=== PATIENT | male | born 1950 | race Caucasian/White ===

== ENCOUNTER → 2019-02-15 | Outpatient (CLI) | payer MEDICARE ==
--- NOTE | 2019-02-15 16:24 | CT ---
EXAMINATION TYPE: CT brain wo con DATE OF EXAM: 02/15/2019 HISTORY: Dizziness and near syncope. CT DLP: 1107.6 mGycm. Automated Exposure Control for Dose Reduction was Utilized. TECHNIQUE: CT scan of the head is performed without contrast. COMPARISON: None. FINDINGS: There is no acute intracranial hemorrhage or midline shift identified. There is diffuse v entricular and sulcal prominence consistent with diffuse age-related cerebral atrophy. There is low- attenuation in the periventricular white matter consistent with chronic small vessel ischemic change. Eccentric severe mucosal thickening in the left maxillary sinus. The globes are intact and the visua lized sinuses are otherwise clear. IMPRESSION: No acute intracranial hemorrhage or midline shift. There is [id number] diffuse ag e-related cerebral atrophy and mild chronic small vessel ischemic change noted.
--- NOTE | 2019-02-15 16:28 | XR ---
EXAMINATION TYPE: XR chest 2V DATE OF EXAM: 02/15/2019 COMPARISON: NONE HISTORY: Syncope and weakness. TECHNIQUE: Frontal and lateral views of the chest are obtained. FINDINGS: There is some chronic parenchymal change without suspicious focal air space opacity, pleural effusion, or pneumothorax seen. The cardiac silhouette size is with in normal limits. Narrowing at bilateral acromioclavicular joints is present. IMPRESSION: No acute cardiopulmonary process.
--- NOTE | 2019-02-15 16:56 | US ---
EXAMINATION TYPE: US carotid duplex BILAT DATE OF EXAM: 02/15/2019 COMPARISON: NONE CLINICAL HISTORY: Near Syncope R55. Dizziness. Blurred vision. EXAM MEASUREMENTS: RIGHT: Peak Systolic Velocity (PSV) cm/sec ----- Right CCA: 112.2 ----- Right ICA: 84.4 ----- Right ECA: 141.6 ICA/CCA ratio: 0.8 RIGHT: End Diastole cm/sec ----- Right CCA: 29.3 ----- Right ICA: 32.6 ----- Right ECA: 13.9 LEFT: Peak Systolic Velocity (PSV) cm/sec ----- Left CCA: 75.6 ----- Left ICA: 105.7 ----- Left ECA: 123.8 ICA/CCA ratio: 1.4 LEFT: End Diastole cm/sec ----- Left CCA: 16.1 ----- Left ICA: 35.8 ----- Left ECA: 18.8 VERTEBRALS (direction of flow): Right Vertebral: Antegrade Left Vertebral: Antegrade Rhythm: Normal Bilateral wall thickening. Elevated right ECA and slightly right prox CCA. Plaque seen in bilateral bulbs. No significant stenosis. IMPRESSION: There is antegrade flow in the vertebral arteries. There is plaque formation and the nani ges and measurements suggest 50% stenosis in the proximal right common carotid artery. There is also close to 50% stenosis left common carotid artery. Criteria for Assigning % of Stenosis / Diameter reduction (Estimation based on the indirect measurements of the internal carotid artery velocities (ICA PSV). 1. Normal (no stenosis)=ICA PSV < 125 cm/s: ratio < 2.0: ICA EDV<40 cm/s. 2. Less than 50% stenosis=ICA PSV < 125 cm/s: ratio < 2.0: ICA EDV<40 cm/s. 3. 50 to 69% stenosis=ICA PSV of 125 to 230 cm/s: ration 2.0 ? 4.0: ICA EDV 40-100 cm/s. 4. Greater than 70% stenosis to near occlusion= ICA PSV > 230 cm/s: ratio > 4.0: ICA EDV > 100 cm/s. 5. Near occlusion= ICA PSV velocities may be low or undetectable: variable ratio and ICA EDV. 6. Total occlusion=unable to detect flow.
== END | disposition home or self-care (01) ==
LOC: RADUSMAIN 15:55
PROVIDERS: ATTEND Physician Assistant
DX: G31.1 Senile degeneration of brain, not elsewhere classified (principal); I67.82 Cerebral ischemia; I65.23 Occlusion and stenosis of bilateral carotid arteries; R55 Syncope and collapse
CPT/HCPCS: 70450; 71046; 93880

== ENCOUNTER → 2019-05-30 | Outpatient (CLI) | payer MEDICARE | END | disposition home or self-care (01) | LOC: LABWHC1 09:34 | PROVIDERS: ATTEND Urology | DX: R97.20 Elevated prostate specific antigen [PSA] (principal) | CPT/HCPCS: 36415; 84153 ==

== ENCOUNTER 2021-01-20 20:09 | Observation (INO) | payer MEDICARE ==
--- NOTE | 2021-01-20 21:46 | ED ---
General Adult HPI - General Chief complaint: Recheck/Abnormal Lab/Rx Stated complaint: elevated BP Time Seen by Provider: 01/20/21 20:59 Source: patient, family Mode of arrival: ambulatory - History of Present Illness Initial comments: 70 year-old male patient presents to the emergency department for evaluation of altered mental status. Family states that he has been more confused lately and making up scenarios that are not happening. States symptoms have been worsening over the last couple of months. He was getting up at night and talking to himself and laughing. States he has accused her of having an affair and other situations that are not true. Patient states that he feels fine and is not having any symptoms. Denies any headache, blurred vision, or double vision. Den ies any chest pain, shortness of breath, dizziness, or weakness. Denies any numbness or tingling to the extremities. Denies any nausea, vomiting, or diarrhea. 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 Patient denies any recent rash, fever, chills, cough, abdominal pain, constipation, back pain, numbness, tingling, dizziness, weakness, hematuria, dysuria, urinary urgency, urinary frequency, or any other complaints. - Related Data Home Medications Medication Instructions Recorded Confirmed Aspirin EC [Ecotrin Low Dose] 81 mg PO DAILY 01/20/21 01/20/21 Irbesartan [Avapro] 75 mg PO DAILY 01/20/21 01/20/21 Allergies Allergy/AdvReac Type Severity Reaction Status Date / Time No Known Allergies Allergy Verified 01/20/21 23:20 Review of Systems ROS Statement: Those systems with pertinent positive or pertinent negative responses have been documented in the HPI. ROS Other: All systems not noted in ROS Statement are negative. Past Medical History Past Medical History: Hyperlipidemia, Hypertension History of Any Multi-Drug Resistant Organisms: MRSA Date of last positivie culture/infection: 09/20/2014 MDRO Source:: Scrotum Past Surgical History: No Surgical Hx Reported Past Anesthesia/Blood Transfusion Reactions: Motion Sickness Past Psychological History: No Psychological Hx Reported Smoking Status: Current every day smoker Past Alcohol Use History: None Reported Past Drug Use History: None Reported - Past Family History Son(s) Family Medical History: Cancer General Exam General appearance: alert, in no apparent distress, other (Physical well- developed, well-nourished elderly male patient in no acute distress. Vital signs upon presentation are temperature 98.1F, pulse 86, respirations 20, blood pressure 173/81, pulse ox 97% on room air.) Eye exam: Present: normal appearance, PERRL, EOMI. Absent: scleral icterus, conjunctival injection, periorbital swelling ENT exam: Present: normal exam, normal oropharynx, mucous membranes moist Respiratory exam: Present: normal lung sounds bilaterally. Absent: respiratory distress, wheezes, rales, rhonchi, stridor Cardiovascular Exam: Present: regular rate, normal rhythm, normal heart sounds. Absent: systolic murmur, diastolic murmur, rubs, gallop, clicks GI/Abdominal exam: Present: soft, normal bowel sounds. Absent: distended, tenderness, guarding, rebound, rigid Neurological exam: Present: alert, oriented X3, CN II-XII intact Psychiatric exam: Present: normal affect, normal mood Skin exam: Present: warm, dry, intact, normal color. Absent: rash Course Vital Signs 01/20/21 01/20/21 01/20/21 20:54 21:22 21:30 Temperature 98.1 F Pulse Rate 86 80 Pulse Rate [ 80 Physical Laboratory Assistant ] Respiratory 20 18 Rate Blood Pressure 173/81 154/84 O2 Sat by Pulse 97 96 Oximetry 01/20/21 01/21/21 23:10 00:17 Temperature Pulse Rate 72 78 Pulse Rate [ Physical Laboratory Assistant ] Respiratory 18 18 Rate Blood Pressure 130/77 O2 Sat by Pulse 96 97 Oximetry EKG Findings - EKG Comments: EKG Findings:: EKG obtained at 2107 shows normal sinus rhythm with an incomplete right bundle branch block. Ventricular rate is 78, GA interval 130, QRS duration 104, QT 380, QTc 433. Medical Decision Making - Medical Decision Making 70-year-old male patient presenting with for evaluation of altered mental status, confusion, paranoia going on and getting increasingly worse for the last couple of months. Physical examination is unremarkable. He is neurologically intact with no focal deficits. He is alert and oriented at this time. Labs reviewed and were unremarkable. CT brain was negative. Urinalysis shows no signs of infection. is very concerned and would like to have him evaluated by psychiatry. Since this is quite new for him we will also admit to the hospital to see the neurologist and have psych see him while he is here. Patient is reluctant to stay, we will give him Ativan. I did discuss with family that is possible that he may need restraining if he does not cooperate, they were agreeable. is filling out a petition. Case discussed with Calderon Rojas for Dr. Denny who is agreeable with this plan. Case discussed with my attending Dr. Dominguez. - Lab Data Result diagrams: 01/20/21 21:55 01/20/21 21:55 Lab Results 01/20/21 01/20/21 01/20/21 Range/Units 21:55 21:55 21:55 WBC 10.8 H (3.8-10.6) k/uL RBC 5.37 (4.30-5.90) m/uL Hgb 16.0 (13.0-17.5) gm/dL Hct 47.0 (39.0-53.0) % MCV 87.5 (80.0-100.0) fL MCH 29.8 (25.0-35.0) pg MCHC 34.1 (31.0-37.0) g/dL RDW 15.2 (11.5-15.5) % Plt Count 210 (150-450) k/uL MPV 7.7 Neutrophils % 71 % Lymphocytes % 20 % Monocytes % 6 % Eosinophils % 2 % Basophils % 1 % Neutrophils # 7.6 (1.3-7.7) k/uL Lymphocytes # 2.1 (1.0-4.8) k/uL Monocytes # 0.6 (0-1.0) k/uL Eosinophils # 0.2 (0-0.7) k/uL Basophils # 0.1 (0-0.2) k/uL PT 10.5 (9.0-12.0) sec INR 1.0 (<1.2) APTT 23.1 (22.0-30.0) sec Sodium (137-145) mmol/L Potassium (3.5-5.1) mmol/L Chloride (98-107) mmol/L Carbon Dioxide (22-30) mmol/L Anion Gap mmol/L BUN (9-20) mg/dL Creatinine (0.66-1.25) mg/dL Est GFR (CKD-EPI)AfAm (>60 ml/min/1.73 sqM) Est GFR (CKD-EPI)NonAf (>60 ml/min/1.73 sqM) Glucose (74-99) mg/dL Calcium (8.4-10.2) mg/dL Total Bilirubin (0.2-1.3) mg/dL AST (17-59) U/L ALT (4-49) U/L Alkaline Phosphatase (38-126) U/L Troponin I (0.000-0.034) ng/mL Total Protein (6.3-8.2) g/dL Albumin (3.5-5.0) g/dL Urine Color Yellow Urine Appearance Clear (Clear) Urine pH 5.0 (5.0-8.0) Ur Specific [place] 1.012 (1.001-1.035) Urine Protein Negative (Negative) Urine Glucose (UA) Negative (Negative) Urine Ketones Negative (Negative) Urine Blood Negative (Negative) Urine Nitrite Negative (Negative) Urine Bilirubin Negative (Negative) Urine Urobilinogen <2.0 (<2.0) mg/dL Ur Leukocyte Esterase Trace H (Negative) Urine RBC 3 (0-5) /hpf Urine WBC 2 (0-5) /hpf Ur Squamous Epith Cells 1 (0-4) /hpf Urine Mucus Occasional H (None) /hpf Urine Opiates Screen Not Detected (NotDetected) Ur Oxycodone Screen Not Detected (NotDetected) Urine Methadone Screen Not Detected (NotDetected) Ur Propoxyphene Screen Not Detected (NotDetected) Ur Barbiturates Screen Not Detected (NotDetected) U Tricyclic Antidepress Not Detected (NotDetected) Ur Phencyclidine Scrn Not Detected (NotDetected) Ur Amphetamines Screen Not Detected (NotDetected) U Methamphetamines Scrn Not Detected (NotDetected) U Benzodiazepines Scrn Not Detected (NotDetected) Urine Cocaine Screen Not Detected (NotDetected) U Marijuana (THC) Screen Not Detected (NotDetected) Serum Alcohol mg/dL 01/20/21 01/20/21 Range/Units 21:55 21:55 WBC (3.8-10.6) k/uL RBC (4.30-5.90) m/uL Hgb (13.0-17.5) gm/dL Hct (39.0-53.0) % MCV (80.0-100.0) fL MCH (25.0-35.0) pg MCHC (31.0-37.0) g/dL RDW (11.5-15.5) % Plt Count (150-450) k/uL MPV Neutrophils % % Lymphocytes % % Monocytes % % Eosinophils % % Basophils % % Neutrophils # (1.3-7.7) k/uL Lymphocytes # (1.0-4.8) k/uL Monocytes # (0-1.0) k/uL Eosinophils # (0-0.7) k/uL Basophils # (0-0.2) k/uL PT (9.0-12.0) sec INR (<1.2) APTT (22.0-30.0) sec Sodium 135 L (137-145) mmol/L Potassium 3.8 (3.5-5.1) mmol/L Chloride 104 (98-107) mmol/L Carbon Dioxide 22 (22-30) mmol/L Anion Gap 9 mmol/L BUN 13 (9-20) mg/dL Creatinine 0.74 (0.66-1.25) mg/dL Est GFR (CKD-EPI)AfAm >90 (>60 ml/min/1.73 sqM) Est GFR (CKD-EPI)NonAf >90 (>60 ml/min/1.73 sqM) Glucose 100 H (74-99) mg/dL Calcium 9.6 (8.4-10.2) mg/dL Total Bilirubin 0.8 (0.2-1.3) mg/dL AST 31 (17-59) U/L ALT 18 (4-49) U/L Alkaline Phosphatase 90 (38-126) U/L Troponin I <0.012 (0.000-0.034) ng/mL Total Protein 6.9 (6.3-8.2) g/dL Albumin 4.4 (3.5-5.0) g/dL Urine Color Urine Appearance (Clear) Urine pH (5.0-8.0) Ur Specific [place] (1.001-1.035) Urine Protein (Negative) Urine Glucose (UA) (Negative) Urine Ketones (Negative) Urine Blood (Negative) Urine Nitrite (Negative) Urine Bilirubin (Negative) Urine Urobilinogen (<2.0) mg/dL Ur Leukocyte Esterase (Negative) Urine RBC (0-5) /hpf Urine WBC (0-5) /hpf Ur Squamous Epith Cells (0-4) /hpf Urine Mucus (None) /hpf Urine Opiates Screen (NotDetected) Ur Oxycodone Screen (NotDetected) Urine Methadone Screen (NotDetected) Ur Propoxyphene Screen (NotDetected) Ur Barbiturates Screen (NotDetected) U Tricyclic Antidepress (NotDetected) Ur Phencyclidine Scrn (NotDetected) Ur Amphetamines Screen (NotDetected) U Methamphetamines Scrn (NotDetected) U Benzodiazepines Scrn (NotDetected) Urine Cocaine Screen (NotDetected) U Marijuana (THC) Screen (NotDetected) Serum Alcohol <10 mg/dL - Radiology Data Radiology results: report reviewed, image reviewed Two-view x-ray of the chest is obtained. Report was reviewed in its entirety. Impression by Dr. Scott shows normal chest. No change CT brain without contrast was obtained. Report was reviewed in its entirety. Impression by Dr. Scott shows cerebral atrophy. No acute intracranial abnormality. No change compared to old exam. Disposition Clinical Impression: Altered mental status, Paranoia Disposition: ADMITTED IP TO THIS [facility] Condition: Serious Decision to Admit Reason: Admit from EC Decision Date: 01/21/21 Decision Time: 01:09
[2021-01-20 22:10] LABS: Appearance,Urine Clear (Clear); Bilirubin,Urine Negative (Negative); Blood,Urine Negative (Negative); Color,Urine Yellow; Glucose,Urine (UA) Negative (Negative); Ketones,Urine Negative (Negative); Leukocyte Esterase,Urine Trace (Negative); Mucus,Urine Occasional /hpf; Nitrite,Urine Negative (Negative); Protein,Urine Negative (Negative); RBC,Urine 3 /hpf (0-5); Specific Gravity,Urine 1.012 (1.001-1.035); Squamous Epithelial Cell,Urine 1 /hpf (0-4); Urobilinogen,Urine <2.0 mg/dL (<2.0); WBC,Urine 2 /hpf (0-5)
[2021-01-20 22:13] LABS: ALT 18 U/L (4-49); AST 31 U/L (17-59); African American GFR (CKD) >90 (>60 ml/min/1.73 sqM); Albumin 4.4 g/dL (3.5-5.0); Alcohol <10 mg/dL; Alkaline Phosphatase 90 U/L (38-126); Anion Gap 9 mmol/L; Blood Urea Nitrogen 13 mg/dL (9-20); Calcium 9.6 mg/dL (8.4-10.2); Carbon Dioxide 22 mmol/L (22-30); Chloride 104 mmol/L (98-107); Glucose 100 mg/dL (74-99); Non-African American GFR(CKD) >90 (>60 ml/min/1.73 sqM); Potassium 3.8 mmol/L (3.5-5.1); Sodium 135 mmol/L (137-145); Total Bilirubin 0.8 mg/dL (0.2-1.3); Total Protein 6.9 g/dL (6.3-8.2)
[2021-01-20 22:15] LABS: Partial Thromboplastin Time 23.1 sec (22.0-30.0); Prothrombin Time 10.5 sec (9.0-12.0)
[2021-01-20 22:20] LABS: Amphetamine Screen,Urine Not Detected (NotDetected); Barbiturate Screen,Urine Not Detected (NotDetected); Benzodiazepines Screen,Urine Not Detected (NotDetected); Cocaine Screen,Urine Not Detected (NotDetected); Methadone Screen, Urine Not Detected (NotDetected); Opiate Screen,Urine Not Detected (NotDetected); Oxycodone Screen, Urine Not Detected (NotDetected); Phencyclidine Screen,Urine Not Detected (NotDetected); Tricyclic Antidepressant,Urine Not Detected (NotDetected); Urn Cannabinoid Scrn Not Detected (NotDetected)
[2021-01-20 22:21] LABS: Basophils # (A) 0.1 k/uL (0-0.2); Basophils % (A) 1 %; Eosinophils # (A) 0.2 k/uL (0-0.7); Eosinophils % (A) 2 %; Lymphocytes # (A) 2.1 k/uL (1.0-4.8); Lymphocytes % (A) 20 %; MCH 29.8 pg (25.0-35.0); MCHC 34.1 g/dL (31.0-37.0); MCV 87.5 fL (80.0-100.0); Mean Platelet Volume 7.7; Monocytes # (A) 0.6 k/uL (0-1.0); Monocytes % (A) 6 %; Neutrophils # (A) 7.6 k/uL (1.3-7.7); Neutrophils % (A) 71 %; Platelet Count 210 k/uL (150-450); RBC 5.37 m/uL (4.30-5.90); RDW 15.2 % (11.5-15.5); WBC 10.8 k/uL (3.8-10.6)
--- NOTE | 2021-01-20 22:58 | XR ---
EXAMINATION TYPE: XR chest 2V DATE OF EXAM: 01/20/2021 COMPARISON: February 15, 2019 HISTORY: Altered mental status. TECHNIQUE: FINDINGS: Heart and mediastinum are normal. Lungs are clear. Diaphragm is normal. Bony thorax is inta ct. IMPRESSION: Normal chest. No change.
--- NOTE | 2021-01-20 23:00 | CT ---
EXAMINATION TYPE: CT brain wo con DATE OF EXAM: 01/20/2021 COMPARISON: February 15, 2019 HISTORY: AMS CT DLP: 1229.4 mGycm Automated exposure control for dose reduction was used. Exam performed without contrast. There is cerebral atrophy. There is no mass effect nor midline shift. There is no sign of intracrania l hemorrhage. Calvarium is intact. There is normal aeration of the mastoid sinuses. IMPRESSION: Cerebral atrophy. No acute intracranial abnormality. No change compared to old exam.
[2021-01-20] MEDS ORDERED: LORazepam 2 MG/ML INJ IV STA (23:34)
[2021-01-20] MEDS ORDERED: NALOXONE 0.4 MG/ML 1 ML VIAL IV PRN (23:46)
[2021-01-20] MEDS ORDERED: LORazepam 2 MG/ML INJ IV PRN (23:46)
[2021-01-21 07:34] LABS: Basophils # (A) 0.1 k/uL (0-0.2); Basophils % (A) 1 %; Eosinophils # (A) 0.3 k/uL (0-0.7); Eosinophils % (A) 4 %; HCT 46.8 % (39.0-53.0); HGB 15.4 gm/dL (13.0-17.5); Lymphocytes # (A) 1.6 k/uL (1.0-4.8); Lymphocytes % (A) 20 %; MCH 29.4 pg (25.0-35.0); MCHC 32.9 g/dL (31.0-37.0); MCV 89.3 fL (80.0-100.0); Mean Platelet Volume 7.5; Monocytes # (A) 0.4 k/uL (0-1.0); Monocytes % (A) 6 %; Neutrophils # (A) 5.2 k/uL (1.3-7.7); Neutrophils % (A) 68 %; Platelet Count 206 k/uL (150-450); RBC 5.24 m/uL (4.30-5.90); RDW 15.2 % (11.5-15.5); WBC 7.7 k/uL (3.8-10.6)
[2021-01-21 07:51] LABS: ALT 18 U/L (4-49); AST 29 U/L (17-59); African American GFR (CKD) >90 (>60 ml/min/1.73 sqM); Albumin 4.3 g/dL (3.5-5.0); Albumin/Globulin Ratio 1.7; Alkaline Phosphatase 93 U/L (38-126); Anion Gap 7 mmol/L; Blood Urea Nitrogen 11 mg/dL (9-20); Calcium 9.7 mg/dL (8.4-10.2); Carbon Dioxide 26 mmol/L (22-30); Chloride 104 mmol/L (98-107); Globulin 2.6 g/dL; Glucose 99 mg/dL (74-99); Magnesium 2.2 mg/dL (1.6-2.3); Non-African American GFR(CKD) >90 (>60 ml/min/1.73 sqM); Potassium 4.4 mmol/L (3.5-5.1); Sodium 137 mmol/L (137-145); Total Bilirubin 1.3 mg/dL (0.2-1.3); Total Protein 6.9 g/dL (6.3-8.2)
[2021-01-21] MEDS ORDERED: LOSARTAN 25 MG TAB PO SCH (09:00)
[2021-01-21] MEDS ORDERED: ASPIRIN 81 MG PO SCH (09:00)
[2021-01-21] MEDS: IPRATROPIUM-ALBUTEROL 3 ML NEB INHALATION SCH ×3 (09:34→20:37)
[2021-01-21] MEDS: SODIUM CHLORIDE 0.9% 1,000 ML IV SCH ×2 (09:56→23:08)
--- NOTE | 2021-01-21 13:12 | P.CNNES ---
History of Present Illness Consult date: 01/21/21 Requesting physician: Montserrat Looney Reason for Consult: Altered mental status, paranoia History of Present Illness: Patient is a 70-year-old male came to the hospital yesterday at 8:52 PM for evaluation of altered mental status, confusion, paranoia going on and getting increasingly worse for the last couple months. Patient himself denies any symptoms. He states that he fell about 1-1/2 years ago, when he tripped on a cement, stumbled and hit right side of the face on the cement. He did lose consciousness for about 30-60 seconds. He was able to get up by himself, drove home. He saw Dr. Denny office the next day. He states that he underwent MRI, which showed something consisting of 3 letters, which I presume is "TIA". He says that he has some memory problems but nothing major. He has no concerns at all. Patient was sent to the hospital for high blood pressure. Once the blood pressure was controlled, when patient was considered about discharge, patient's mentioned that he has been paranoid or the last 2 months. She has petitioned the patient. According to the edition, patient has been talking to himself, people listening, paranoia, and using his of unfilled fullness with false accusations. He is accusing children of trying to take his forearm, family trying to entrap him. Therefore for this altered mental status, neurology and psychiatry consultation has been initiated. Patient denies headache, denies any numbness or tingling. Denies any problem with memory functions. He does firmly believe that his is having an affair with someone else, arranged/introduced by a person Trisha. Patient states that he lives his , who they're for 26 years. He has 5 children. He smokes one pack every 3 days for last 5 years. He used to smoke cigars, once a week, never heavy smoker. He does not drink, does not do any drugs or uses any marijuana. Vital signs on arrival blood pressure 173/81, pulse rate 86, temperature 98.1. Blood test shows normal WBC 7.7, normal hemoglobin 15.4. PT/PTT normal, sodium was mildly low 135 but now normal 137. Renal functions, hepatic panel, troponin, TSH are all normal or negative. UA is negative. Urine drug screen negative, blood alcohol level negative. CT head showed cerebral atrophy. No acute intracranial abnormality. No change compared to old exam. Chest x-ray is normal. EKG shows normal sinus rhythm, incomplete right bundle branch block. Carotid Doppler on 02/15/2019 showed antegrade flow in the vertebral arteries. There is plaque formation and the images in measurement suggest 50% stenosis in the proximal right common carotid artery. I spoke to the nurse taking care of him in the ER, as well as the sitter who is watching the patient, states that he is completely clear mentally. Patient has been very calm, comfortable, does not get agitated, or gets irritable. He is staying calmly in the ER. No evidence of altered mentation. Review of Systems Denies headache, problem with the vision, hoarseness, sore throat, dysphagia. Denies any problem with walking, denies any balance issues, any abdominal pain. No nausea vomiting diarrhea. No chest pain or shortness of breath. No wheezing or cough. No leg pain. No fever or chills. No weight loss. Past Medical History Past Medical History: Hyperlipidemia, Hypertension History of Any Multi-Drug Resistant Organisms: MRSA Date of last positivie culture/infection: 09/20/2014 MDRO Source:: Scrotum Past Surgical History: No Surgical Hx Reported Past Anesthesia/Blood Transfusion Reactions: Motion Sickness Past Psychological History: No Psychological Hx Reported Smoking Status: Current every day smoker Past Alcohol Use History: None Reported Past Drug Use History: None Reported - Past Family History Son(s) Family Medical History: Cancer Medications and Allergies Home Medications Medication Instructions Recorded Confirmed Type Aspirin EC [Ecotrin Low Dose] 81 mg PO DAILY 01/20/21 01/20/21 History Irbesartan [Avapro] 75 mg PO DAILY 01/20/21 01/20/21 History Allergies Allergy/AdvReac Type Severity Reaction Status Date / Time No Known Allergies Allergy Verified 01/20/21 23:20 Physical Examination - Vital Signs Vital Signs: Vital Signs Temp Pulse Pulse Resp BP Pulse Ox 01/21/21 10:00 18 01/21/21 09:00 18 01/21/21 08:11 18 01/21/21 05:57 97.9 F 76 18 120/58 96 01/21/21 03:10 18 01/21/21 00:17 78 18 97 01/20/21 23:10 72 18 130/77 96 01/20/21 21:30 80 01/20/21 21:22 80 18 154/84 96 01/20/21 20:54 98.1 F 86 20 173/81 97 Intake and Output 01/20/21 01/21/21 01/21/21 22:59 06:59 14:59 Other: Weight 99.79 kg Patient is an elderly male, very pleasant, in no acute distress. Patient is alert awake oriented to time place and person. Patient knows that it is January 23 and the year is 2020. He knows it is Wednesday, early fall season. He knows that he is in [facility], [facility] and on ground level. Clock drawing test was perfect. Patient has no visuospatial apraxia. Negative palmomental reflex. Speech and language functions are normal. No aphasia or dysarthria. Attention, concentration and fund of knowledge is adequate. On cranial examination, pupils are round and reacting to light, visual ortiz are full on confrontation, extraocular muscles are intact with no nystagmus. Face is symmetric, tongue protrudes to the midline. Palatal elevation and sensation normal, hearing and shoulder shrug normal, facial sensation normal. Shoulder shrug normal. On muscle strength testing, there is no pronator drift and the strength is normal in arms and legs distally and proximally. Deep tendon reflexes are 1+ in the upper limbs, 3 at the knees but ankles and plantars are withdrawal bilaterally. Sensory to touch is equal with no neglect. Cerebellar function showed no ataxia for [id number] testing. He is slightly tremulous for [id number] testing as well as for outstretched hands. Tone and bulk of muscles normal. Gait normal, although he walks with a slight stoop, but no parkinsonian gait. On general examination, there is mild right carotid bruit. No murmur, S1-S2 audible. Abdomen is soft nontender. Chest is clear. Peripheral pulses are present. No edema. Results - Laboratory Findings CBC and BMP: 01/21/21 07:11 01/21/21 07:07 Abnormal Lab Findings: Abnormal Labs 01/20/21 01/20/21 01/20/21 21:55 21:55 21:55 WBC 10.8 H Sodium 135 L Glucose 100 H Ur Leukocyte Esterase Trace H Urine Mucus Occasional H Assessment and Plan Assessment: * 70-year-old male referred for altered mental status, mainly related to paranoia, falls accusations as reported by his , going on for last 2 months. Patient's mental status is completely normal. No evidence of dementia based upon cognitive function testing as above. No evidence of a ltered mental status at least as of now. New onset paranoia, if confirmed, possibly psychiatric related. * Hypertension Plan: * We will check MRI of the brain with and without contrast to rule out any ?autoimmune or para-neoplastic process, or other structural abnormality. * B12, folate, MMA, B6, B1 level. RPR. * Await psychiatry consultation. * Discussed with nursing staff and Dr Santiago in detail. * We will follow patient clinically.
--- NOTE | 2021-01-21 13:30 | P.CN ---
Psychiatric Consult - . Consult date: 01/21/21 Consult:: 01/21/21 13:15 IDENTIFYING DATA: This patient is a 70-year-old male with no past psychiatric history currently lives with his and has 3 kids of his own. 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 REASON FOR REFERRAL: Psychiatry was consulted for "paranoiac confusion and talking to himself" HISTORY OF PRESENT ILLNESS: The patient presented to the hospital yesterday with altered mental status. He was brought in by family. Patient apparently was displaying confusion and according to family making up scenarios that didn't occur. Family states that this is been going on for the past 2 months according to ER report. Patient had a brain CT which did not show any acute changes however didn't show cerebral atrophy. Urinalysis was negative. Urine drug screen was negative. Wbc's were mildly elevated at 10.8 and sodium was at 135. Nurse taking care of patient states that he has been accused by his and petitioned and has been accusing his of an affair. Nurse claims that patient's behavior has been appropriate calm and cooperative and did not have any behavioral disturbances. Nurse also claims that patient has been denying everything on the petition. Patient was seen at the bedside and was agreeable to speak to pattern chart writer. He was fairly calm and cooperative with the examination. He spoke about not knowing why he is in the hospital however has been going along with the process. He states that the police showed up because his called them. He claims that his has been dealing with "bipolar and other issues" and states that she has been away from the house on and off which has been fairly unusual for her. She was fairly vague about why he believes that she is having an affair however did claim that she has been having a "change in her personality and may have a boyfriend". He spoke about a lady and a friend of his from [place] [employer] name Trisha who may know more about his and what she is doing. He claims that he has been trying to talk to her about it but she is not willing to tell him anything. He claims that he has a good relationship with his 3 kids however states that Giselle's children are trying to take his land away from him. He claims that he may want a divorce in the next few months because he does not trust his and claims that they have grown apart over the past few years. He states that they sleep in different bedrooms. He claims that his sleep has been fair his mood is "okay" and is denying any depression or anxiety. He does state that he has hunting rifles at home which are locked away. He is not endorsing any other delusions and was fairly rational and logical during conversation. At this time patient denies any suicidal or homical ideations, intent or plan. Patient denies any auditory, visual hallucinations. Patients admits to using cigarettes only and no other recreational drugs. He was alert and oriented 3. Catcher Filter Tip called Archana, the petitioner at [phone], no answer left VM PAST PSYCHIATRIC HISTORY: Patient has no significant past psychiatric history. Patient denies being on any psychiatric medications. Patient denies any previous psychiatric hospitalizations. Patient denies any psychiatric outpatient follow- up. Patient denies any history of suicide attempts in the past. Past Medical History: Hyperlipidemia, Hypertension History of Any Multi-Drug Resistant Organisms: MRSA ALLERGIES: as per EMR. CHEMICAL DEPENDENCY HISTORY: as per HPI. FAMILY PSYCHIATRIC/SUBSTANCE USE HISTORY: denies SOCIAL HISTORY: Patient was born and raised in [facility] and also in [employer] [place] [facility]. He states that he dropped out of school in the 10th grade. He denies any history. He denies any legal history. 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 He is currently , lives with his in the house. MENTAL STATUS EXAM: General Appearance: Patient appears to be elderly, wearing a hat, stated age is alert, pleasant, and cooperative. Patient appears to have fair hygiene and grooming wearing hospital gown with fair eye contact. Behavior: Patient is calmly lying in bed without any agitated behavior. c ooperative Speech: Patient's speech is fluent and nonpressured. Mood/Affect: Patient reports their mood is "ok", affect is congruent Suicidality/Homicidality: Patient denies having any suicidal or homicidal ideation intent or plan. Perceptions: Patient denies any visual hallucinations and denies any auditory hallucinations Though content/process: There is no evidence of any delusional thought content and thought process is linear and goal-directed. logical. Memory and concentration: AOX3, grossly intact for the purposes of this session. Can spell "WORLD" backwards Judgment and insight: fair IMPRESSIONS: Adjustment disorder unspecified Marital conflict Nicotine dependence PLAN: -At this time patient DOES NOT meet criteria for inpatient psychiatric admission. -Delirium precautions recommended with patient including - avoiding use of narcotics and KENNEL HAND sedatives, limit anticholinergic medications when possible, frequent re-orientation, minimize use of restraints, open window shades during the day and close them at night -Would recommend the following medication changes/additions: no medications needed at this time. Please no more Ativan or other BZD as this could make patient more confused or pose a fall risk. -Neurology onboard and discussed case and findings with Dr. Bhatt. will check MRI of the brain with and without contrast.B12, folate, MMA, B6, B1 level. RPR. -Can discontinue 1:1 sitter at this time as patient is not currently an imminent threat to themselves -Communicated plan to patient's nurse -Will continue to await call back from for further collateral information. -Psychiatry will sign off at this time -Please contact with any questions.
[2021-01-21] MEDS ORDERED: ALPRAZolam 0.5 MG TAB PO STA (14:54)
--- NOTE | 2021-01-21 18:11 | P.HPIM ---
History of Present Illness H&P Date: 01/21/21 Chief Complaint: Delirium multifactorial 70-year-old male with significant medical history of hypertension, upper lipidemia, history of MRSA, nicotine dependence, and prostate disorder; was admitted to the hospital for acute mental status change per family, patient was petitioned by and family for thoughts of significant other parachute packer affair, and children attempting to steal intake lay and from him. Upon evaluation of patient this a.m. patient resting comfortably in bed. Patient alert and oriented 4. Patient sedation denies any involvement of family attempting to take estate. Patient is adamant about marital discord will not going great detail regarding male that is discord. Vital signs of diagnostic testing reviewed unremarkable no acute abnormalities noted. Patient agreeable to see psychiatry, and neurology for further evaluation. 01/21/2021 Patient seen and examined at bedside resting comfortably with no acute signs of distress. Patient denies fever, chills, shortness of breath, chest pain, palpitations, abdominal pain or nausea at this time. Patient denies any complaints at this time. Patient updated on treatment plan and care plan from a medical standpoint and a psychiatric standpoint. Patient adamantly denies suicidal or homicidal ideation. Patient is able to take care of himself per patient. Patient cooperative during interview and maintains eye contact throughout interview. Patient no acute signs of distress. Review of Systems Constitutional: Reports as per HPI Ears, nose, mouth and throat: Reports as per HPI Cardiovascular: Reports as per HPI Respiratory: Reports as per HPI Gastrointestinal: Reports as per HPI Musculoskeletal: Reports as per HPI Integumentary: Reports as per HPI Neurological: Reports as per HPI Psychiatric: Reports as per HPI Endocrine: Reports as per HPI Hematologic/Lymphatic: Reports as per HPI Allergic/Immunologic: Reports as per HPI Past Medical History Past Medical History: Hyperlipidemia, Hypertension History of Any Multi-Drug Resistant Organisms: MRSA Date of last positivie culture/infection: 09/20/2014 MDRO Source:: Scrotum Past Surgical History: No Surgical Hx Reported Past Anesthesia/Blood Transfusion Reactions: Motion Sickness Past Psychological History: No Psychological Hx Reported Smoking Status: Current every day smoker Past Alcohol Use History: None Reported Past Drug Use History: None Reported - Past Family History Son(s) Family Medical History: Cancer Medications and Allergies Home Medications and Allergies Comment(s): Medications and ALLERGIES reviewed Home Medications Medication Instructions Recorded Confirmed Type Aspirin EC [Ecotrin Low Dose] 81 mg PO DAILY 01/20/21 01/20/21 History Irbesartan [Avapro] 75 mg PO DAILY 01/20/21 01/20/21 History Allergies Allergy/AdvReac Type Severity Reaction Status Date / Time No Known Allergies Allergy Verified 01/20/21 23:20 Physical Exam Vitals: Vital Signs Temp Pulse Pulse Resp BP Pulse Ox 01/21/21 14:00 18 97 01/21/21 13:00 97.8 F 63 18 132/73 97 01/21/21 12:00 18 01/21/21 11:00 18 01/21/21 10:00 18 01/21/21 09:00 18 01/21/21 08:11 18 01/21/21 05:57 97.9 F 76 18 120/58 96 01/21/21 03:10 18 01/21/21 00:17 78 18 97 01/20/21 23:10 72 18 130/77 96 01/20/21 21:30 80 01/20/21 21:22 80 18 154/84 96 01/20/21 20:54 98.1 F 86 20 173/81 97 - Constitutional General appearance: cooperative - EENT Eyes: EOMI, PERRLA, normal appearance ENT: normal oropharynx - Neck Carotids: bilateral: upstroke normal Thyroid: bilateral: normal size - Respiratory Respiratory: bilateral: CTA (Anterior and posterior lung ortiz) - Cardiovascular Normal sinus rhythm mechanism Heart rate: 74 Rhythm: regular Heart sounds: normal: S1, S2 radial pulse Peripheral Pulses: bilateral: Normal dorsalis pedis Peripheral Pulses: bilateral: Normal - Gastrointestinal General gastrointestinal: normal bowel sounds - Integumentary Integumentary: normal - Neurologic Neurologic: CNII-XII intact - Musculoskeletal Musculoskeletal: gait normal - Psychiatric Psychiatric: A&O x's 3 Results CBC & Chem 7: 01/21/21 07:11 01/21/21 07:07 Labs: Abnormal Lab Results - Last 24 Hours (Table) 01/20/21 01/20/21 01/20/21 Range/Units 21:55 21:55 21:55 WBC 10.8 H (3.8-10.6) k/uL Sodium 135 L (137-145) mmol/L Glucose 100 H (74-99) mg/dL Ur Leukocyte Esterase Trace H (Negative) Urine Mucus Occasional H (None) /hpf Chest x-ray: report reviewed Thrombosis Risk Factor Assmnt - Choose All That Apply Any of the Below Risk Factors Present?: No Each Risk Factor Represents 2 Points: Age 61-74 years Thrombosis Risk Factor Assessment Total Risk Factor Score: 2 Thrombosis Risk Factor Assessment Level: Low Risk Assessment and Plan Assessment: Possibly acute delirium Hypertension Hyperlipidemia Nicotine dependence Prostate disorder Full code Plan: Possibly acute delirium, consultation with psychiatry and neurology for further recommendations. We'll continue neuro exams and de-escalation techniques; awaiting on MRI MRA of head and neck tomorrow Hypertension continue home medications Continue medical management Continue to monitor vital signs and diagnostic testing Hopeful discharge home after MRI/MRA of head and neck tomorrow Time with Patient: Greater than 30
[2021-01-21] MEDS ORDERED: TEMAZEPAM 15 MG CAP PO SCH (21:00)
[2021-01-21 21:49] LABS: Folate, Serum 23.3 ng/mL
[2021-01-21] MEDS ORDERED: ALPRAZolam 0.25 MG TAB PO SCH (22:00)
[2021-01-21] MEDS ORDERED: LORazepam 2 MG/ML INJ IV STA (23:55)
[2021-01-22 00:23] VITALS: BP 136/70; PULSE 90; RESP 16; TEMP 98.3
--- NOTE | 2021-01-22 02:13 | P.PN ---
Progress Note - Text Progress Note Date: 01/22/21 01/22/2021 Contacted by shelter staff regarding patient's behavior my patient anxious, restless, wandering the halls per nursing staff. Patient apparently was redirected towards the room for brief period of time. Patient was adamant regarding removing of intravenous access, refuse ativan 1 mg intravenous for agitation and restlessness. Nursing staff attempted several times to redirect the patient to room. Contacted by nursing staff regarding patient's behavior for the second time, agreed to come see patient. Upon rounding, patient had eloped from the hospital; per shelter staff patient was alert and appropriate. From a medical standpoint unable to have [id number] interaction with patient to establish ongoing acute delirium, due to patient elopement from hospital.
[2021-01-24 06:19] LABS: Methylmalonic Acid 0.29 umol/L (<0.40)
== END 2021-01-22 00:57 | disposition left against medical advice (07) ==
LOC: EC 20:09 → 6NMEDSUR 23:26
PROVIDERS: ADMIT Family Medicine; ATTEND Family Medicine
DX: F43.20 Adjustment disorder, unspecified (principal); Z63.0 Problems in relationship with spouse or partner; Z53.29 Procedure and treatment not carried out because of patient's decision for other reasons; R41.3 Other amnesia; I10 Essential (primary) hypertension; E78.5 Hyperlipidemia, unspecified; Z86.14 Personal history of Methicillin resistant Staphylococcus aureus infection; F17.210 Nicotine dependence, cigarettes, uncomplicated; N42.9 Disorder of prostate, unspecified; Z91.81 History of falling; Z79.899 Other long term (current) drug therapy; Z79.82 Long term (current) use of aspirin; Z80.8 Family history of malignant neoplasm of other organs or systems
CPT/HCPCS: 96374; 99285; 36415; 93005; 84207; 83921; 84439; 84425; 84481; 80053 ×2; 82607; 82746; 83735; 84443; 84484; 85025 ×2; 85610; 85730; 81001; 86780; 80306; 71046; 70450; G0378 ×2; G0480; J2060; 80320

== ENCOUNTER 2021-01-22 03:14 | Emergency (ER) | payer MEDICARE ==
[2021-01-22 03:31] VITALS: BP 119/82; PULSE 82; RESP 18; TEMP 98
== END 2021-01-22 05:00 ==
LOC: EC 03:14
DX: Z53.21 Procedure and treatment not carried out due to patient leaving prior to being seen by health care provider (principal)
CPT/HCPCS: 99499

== ENCOUNTER 2021-01-25 21:13 | Emergency (ER) | payer MEDICARE ==
[2021-01-25 21:32] VITALS: TEMP 97.4
[2021-01-25] MEDS ORDERED: SODIUM CHLORIDE 0.9% 1,000 ML IV STA (21:37)
[2021-01-25] MEDS ORDERED: SODIUM CHLORIDE 0.9% 500 ML 500 ML IV ONE (21:37)
--- NOTE | 2021-01-25 21:45 | ED ---
Altered Mental Status HPI - General Chief Complaint: Altered Mental Status Stated Complaint: Altered Mental Status Time Seen by Provider: 01/25/21 21:29 Source: patient, EMS, RN notes reviewed, old records reviewed Mode of arrival: EMS Limitations: altered mental status - History of Present Illness Initial Comments: This is a 70-year-old male who is presenting to the emergency department today. Patient presents by EMS and PD presenting for evaluation of psychotic or psychosis. Patient has history of recent hospitalization for worsening altered mental status. Patient was found wandering around in the field. Patient denying drugs or alcohol, denying homicidal or suicidal thoughts. Patient is relatively appropriate but does have outbursts. History is poor secondary to patient's status MD Complaint: altered mental status, confusion -: unknown Severity: moderate Consistency of Symptoms: waxing and waning, getting worse Associated Symptoms: denies other symptoms Treatments Prior to Arrival: glucose - Related Data Home Medications Medication Instructions Recorded Confirmed Aspirin EC [Ecotrin Low Dose] 81 mg PO DAILY 01/20/21 01/25/21 Irbesartan [Avapro] 75 mg PO DAILY 01/20/21 01/25/21 Allergies Allergy/AdvReac Type Severity Reaction Status Date / Time No Known Allergies Allergy Verified 01/25/21 22:12 Review of Systems ROS Statement: Those systems with pertinent positive or pertinent negative responses have been documented in the HPI. ROS Other: All systems not noted in ROS Statement are negative. Past Medical History Past Medical History: Hyperlipidemia, Hypertension History of Any Multi-Drug Resistant Organisms: MRSA Date of last positivie culture/infection: 09/20/2014 MDRO Source:: Scrotum Past Surgical History: No Surgical Hx Reported Past Anesthesia/Blood Transfusion Reactions: Motion Sickness Past Psychological History: No Psychological Hx Reported Smoking Status: Current every day smoker Past Alcohol Use History: None Reported Past Drug Use History: None Reported - Past Family History Son(s) Family Medical History: Cancer General Exam Limitations: altered mental status General appearance: alert, in no apparent distress Head exam: Present: atraumatic, normocephalic, normal inspection Eye exam: Present: normal appearance, PERRL, EOMI. Absent: scleral icterus, conjunctival injection, periorbital swelling ENT exam: Present: normal exam, mucous membranes moist Neck exam: Present: normal inspection. Absent: tenderness, meningismus, lymphadenopathy Respiratory exam: Present: normal lung sounds bilaterally. Absent: respiratory distress, wheezes, rales, rhonchi, stridor Cardiovascular Exam: Present: regular rate, normal rhythm, normal heart sounds. Absent: systolic murmur, diastolic murmur, rubs, gallop, clicks GI/Abdominal exam: Present: soft, normal bowel sounds. Absent: distended, tenderness, guarding, rebound, rigid Extremities exam: Present: normal inspection, full ROM, normal capillary refill. Absent: tenderness, pedal edema, joint swelling, calf tenderness Back exam: Present: normal inspection Neurological exam: Present: alert, oriented X3, CN II-XII intact Psychiatric exam: Present: normal affect, normal mood Skin exam: Present: warm, dry, intact, normal color. Absent: rash Course Vital Signs 01/25/21 21:20 Temperature 97.4 F L Pulse Rate 75 Respiratory 18 Rate Blood Pressure 128/81 O2 Sat by Pulse 97 Oximetry - Reevaluation(s) Reevaluation #1: 01/26/21 01:32 Medical record is reviewed Reevaluation #2: 01/26/21 01:32 Medically clear for psychiatric evaluation Medical Decision Making - Medical Decision Making 70 male patient is unsafe to be on his own, patient will need psychiatric or inpatient placement and care Disposition Clinical Impression: Altered mental status, Paranoia Disposition: TRANSFER TO PSYCH HOSP/UNIT Condition: Undetermined Is patient prescribed a controlled substance at d/c from ED?: No Referrals: Will Denny MD [Primary Care Provider] - 1-2 days
[2021-01-26] MEDS ORDERED: LORazepam 2 MG/ML INJ IV STA (02:02)
[2021-01-26 11:00] LABS: Basophils % (A) 1 %; Eosinophils # (A) 0.3 k/uL (0-0.7); Eosinophils % (A) 4 %; HCT 43.8 % (39.0-53.0); HGB 15.1 gm/dL (13.0-17.5); Lymphocytes # (A) 1.8 k/uL (1.0-4.8); Lymphocytes % (A) 22 %; MCH 30.6 pg (25.0-35.0); MCHC 34.5 g/dL (31.0-37.0); MCV 88.7 fL (80.0-100.0); Mean Platelet Volume 7.8; Monocytes # (A) 0.5 k/uL (0-1.0); Monocytes % (A) 6 %; Neutrophils # (A) 5.4 k/uL (1.3-7.7); Neutrophils % (A) 66 %; Platelet Count 188 k/uL (150-450); RBC 4.93 m/uL (4.30-5.90); RDW 14.5 % (11.5-15.5); WBC 8.2 k/uL (3.8-10.6)
[2021-01-26 11:04] LABS: Appearance,Urine Clear (Clear); Bilirubin,Urine Negative (Negative); Blood,Urine Negative (Negative); Color,Urine Colorless; Glucose,Urine (UA) Negative (Negative); Ketones,Urine Negative (Negative); Leukocyte Esterase,Urine Negative (Negative); Nitrite,Urine Negative (Negative); Protein,Urine Negative (Negative); Specific Gravity,Urine 1.002 (1.001-1.035); Urobilinogen,Urine <2.0 mg/dL (<2.0)
[2021-01-26 11:09] LABS: ALT 23 U/L (4-49); AST 40 U/L (17-59); African American GFR (CKD) >90 (>60 ml/min/1.73 sqM); Albumin 3.7 g/dL (3.5-5.0); Alcohol <10 mg/dL; Alkaline Phosphatase 81 U/L (38-126); Anion Gap 8 mmol/L; Blood Urea Nitrogen 16 mg/dL (9-20); Calcium 9.2 mg/dL (8.4-10.2); Carbon Dioxide 25 mmol/L (22-30); Chloride 105 mmol/L (98-107); Glucose 93 mg/dL (74-99); Non-African American GFR(CKD) >90 (>60 ml/min/1.73 sqM); Potassium 4.3 mmol/L (3.5-5.1); Sodium 138 mmol/L (137-145); Total Bilirubin 0.9 mg/dL (0.2-1.3); Total Protein 6.2 g/dL (6.3-8.2)
[2021-01-26 23:01] VITALS: BP 122/70
[2021-01-26 23:49] VITALS: PULSE 18
[2021-01-27 06:32] VITALS: RESP 18
[2021-01-27 11:36] LABS: Urine Alcohol Negative (Negative); Urine Barbiturate Negative (Negative); Urine Cocaine Negative (Negative); Urine Methadone Negative (Negative); Urine Opiates Negative (Negative); Urine Phencyclidine Negative (Negative)
[2021-01-27] MEDS ORDERED: QUEtiapine 50 MG TAB PO STA (12:14)
[2021-01-27] MEDS ORDERED: OLANZapine 10 MG VIAL IM STA (12:35)
== END 2021-01-27 12:44 ==
LOC: EC 21:13
DX: F22 Delusional disorders (principal); R41.82 Altered mental status, unspecified; I10 Essential (primary) hypertension; E78.5 Hyperlipidemia, unspecified; F17.200 Nicotine dependence, unspecified, uncomplicated; Z79.82 Long term (current) use of aspirin
CPT/HCPCS: 82075; 36415; 80053; 85025; 81003; 80306; 87635; 99285; 96374; G0480; J2060; 80320